=== PATIENT | female | born 1965 | race Caucasian/White ===

== ENCOUNTER 2023-02-27 13:58 | Outpatient (CLI) | payer BC | END 2023-02-27 13:59 | disposition home or self-care (01) | LOC: CSHMRI 13:58 | PROVIDERS: ATTEND Specialist | DX: M51.16 Intervertebral disc disorders with radiculopathy, lumbar region (principal); M47.26 Other spondylosis with radiculopathy, lumbar region; M48.061 Spinal stenosis, lumbar region without neurogenic claudication | CPT/HCPCS: 72148 ==

== ENCOUNTER 2025-05-02 08:37 | Outpatient (CLI) | payer BC | END 2025-05-02 08:38 | disposition home or self-care (01) | LOC: CSHSLEEP 08:37 | PROVIDERS: ATTEND Internal Medicine | DX: G47.33 Obstructive sleep apnea (adult) (pediatric) (principal); R53.83 Other fatigue; R09.89 Other specified symptoms and signs involving the circulatory and respiratory systems; G25.89 Other specified extrapyramidal and movement disorders; R06.83 Snoring; G47.00 Insomnia, unspecified | CPT/HCPCS: 95800 ==